=== PATIENT | female | born 1995 | race Caucasian/White ===

== ENCOUNTER → 2018-01-07 | Outpatient (CLI) | payer OTHER ==
--- NOTE | 2018-01-07 13:54 | RADIOLOGY IMAGING REPORT ---
FACILITY: [facility] PATIENT NAME: Lisa Zamora : 1995 MR: [id number] V: [id number] EXAM DATE: ORDERING PHYSICIAN: IVELISSE PANDA TECHNOLOGIST: Location: [facility] Patient: Lisa Zamora : 1995 Visit/Account:[id number] Date of Sevice: 01/07/2018 Exam type: KNEE 4 VIEW LEFT History: Stepped on by horse yesterday Comparison: None. Findings: Three views of the left knee demonstrate no evidence of acute fracture or dislocation. No radiopaque soft tissue foreign body seen. IMPRESSION: 1. No acute osteoarticular abnormality the left knee is seen Report Dictated By: Lakeisha Mcdaniel MD at 01/07/2018 1:48 PM Report E-Signed By: Lakeisha Mcdaniel MD at 01/07/2018 1:50 PM WSN:[email or web address]
--- NOTE | 2018-01-07 13:55 | RADIOLOGY IMAGING REPORT ---
FACILITY: [facility] PATIENT NAME: Lisa Zamora : 1995 MR: [id number] V: [id number] EXAM DATE: ORDERING PHYSICIAN: IVELISSE PANDA TECHNOLOGIST: Location: [facility] [place] Patient: Lisa Zamora : 1995 Visit/Account:[id number] Date of Sevice: 01/07/2018 Exam type: TIBIA FIBULA LEFT History: Stepped on by horse yesterday Comparison: None. Findings: There is no evidence of acute fracture-dislocation involving the left tibia fibula. No radiopaque so ft tissue foreign bodies are seen. IMPRESSION: 1. No acute osseous articular abnormality of the left tibia fibula seen Report Dictated By: Lakeisha Mcdaniel MD at 01/07/2018 1:50 PM Report E-Signed By: Lakeisha Mcdaniel MD at 01/07/2018 1:51 PM WSN:[email or web address]
--- NOTE | 2018-01-07 13:58 | RADIOLOGY IMAGING REPORT ---
FACILITY: [facility] [place] PATIENT NAME: Lisa Zamora : 1995 MR: [id number] V: [id number] EXAM DATE: ORDERING PHYSICIAN: IVELISSE PANDA TECHNOLOGIST: Location: [facility] [place] Patient: Lisa Zamora : 1995 Visit/Account:[id number] Date of Sevice: 01/07/2018 Exam type: ANKLE 3 VIEW MIN LEFT History: Stepped on by horse yesterday Comparison: None. Findings: No evidence of acute fracture dislocation or radiopaque soft tissue foreign body seen. IMPRESSION: 1. No acute osseous articular abnormality the left ankle is seen Report Dictated By: Lakeisha Mcdaniel MD at 01/07/2018 1:51 PM Report E-Signed By: Lakeisha Mcdaniel MD at 01/07/2018 1:52 PM WSN:[email or web address]
== END ==
LOC: RAD 12:46
PROVIDERS: ATTEND Physician Assistant
DX: S89.92XA Unspecified injury of left lower leg, initial encounter (principal); V80.010A Animal-rider injured by fall from or being thrown from horse in noncollision accident, initial encounter; W55.12XA Struck by horse, initial encounter
CPT/HCPCS: 73564